=== PATIENT | female | born 1960 | race Caucasian/White ===

== ENCOUNTER 2017-08-20 20:05 | Emergency (ER) | payer MEDICARE ==
[2017-08-20] MEDS ORDERED: Morphine 4 MG/ML VIAL ONE ×2 (20:22→20:53)
[2017-08-20] MEDS ORDERED: Ondansetron ODT 4 MG TAB ONE (20:22)
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
--- NOTE | 2017-08-20 20:51 | RAD ---
RIGHT WRIST THREE VIEWS: HISTORY: Comminuted distal radial fracture with mild foreshortening. Nondisplaced ulnar styloid process fract ure. IMPRESSION: 1. Slightly comminuted distal radial fracture with minimal foreshortening. 2. Nondisplaced ulnar styloid process fracture. POS: RRE
== END 2017-08-20 22:37 | disposition home or self-care (01) ==
LOC: ERS 20:05
DX: S52.614A Nondisplaced fracture of right ulna styloid process, initial encounter for closed fracture (principal); S52.501A Unspecified fracture of the lower end of right radius, initial encounter for closed fracture; F90.9 Attention-deficit hyperactivity disorder, unspecified type; Z79.899 Other long term (current) drug therapy; W01.0XXA Fall on same level from slipping, tripping and stumbling without subsequent striking against object, initial encounter
CPT/HCPCS: 29125; 96374; J2270; Q0162

== ENCOUNTER 2018-03-09 08:12 | Inpatient (IN) | payer MEDICARE, OTHER ==
[2018-03-09 08:33] LABS: #Eosinphils 0.3 thou/uL (0.0-0.7); #Lymphocytes 1.5 thou/uL (1.20-3.40); #Monocytes 0.7 thou/uL (0.11-0.59); #Neutrophils 7.7 thou/uL (1.40-6.50); %Basophils 0.4 % (0.0-1.0); %Eosinophils 3.3 % (0.0-10.0); %Lymphocytes 14.5 % (21.0-51.0); %Monocytes 6.4 % (0.0-10.0); %Neutrophils 75.4 % (42.0-75.0); Hemoglobin 12.3 g/dL (12.0-16.0); Mean Corpuscular HGB CONC 31.4 g/dL (32.0-36.0); Mean Corpuscular Hemoglobin 31.4 pg (27.0-31.0); Mean Corpuscular Volume 99.9 fL (78.0-98.0); Mean Platelet Volume 6.7 fL (7.4-10.4); Platelet Count 496 thou/uL (130-400); RBC Distribution Width 13.4 % (11.5-14.5); Red Blood Cell (RBC) Count 3.93 mill/uL (4.20-5.40); White Blood Cell (WBC) Count 10.2 thou/uL (4.8-10.8)
[2018-03-09] MEDS ORDERED: Lorazepam 2 MG/ML VIAL ONE (08:40)
[2018-03-09 08:41] LABS: PTT 26.6 SEC (22.9-36.1); Prothrombin Time 13.6 SEC (12.0-14.7)
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
[2018-03-09 08:56] LABS: ALT (SGPT) 10 U/L (8-55); AST (SGOT) 14 U/L (5-34); Albumin 4.1 g/dL (3.5-5.0); Alkaline Phosphatase 109 U/L (40-150); Anion Gap 16 mmol/L (10-20); BUN (Urea Nitrogen) 10 mg/dL (9.8-20.1); Bilirubin, Total 0.4 mg/dL (0.2-1.2); Calc. Creatinine Clearance 0 mL/min (70-130); Calcium 9.1 mg/dL (7.8-10.44); Carbon Dioxide 16 mmol/L (22-29); Chloride 108 mmol/L (98-107); Estimated GFR-MDRD 76; Globulin 2.7 g/dL (2.4-3.5); Glucose 107 mg/dL (70-105); Lipase 15 U/L (8-78); Potassium 3.5 mmol/L (3.5-5.1); Protein, Total 6.8 g/dL (6.0-8.3); Sodium 136 mmol/L (136-145)
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
[2018-03-09] MEDS ORDERED: Ondansetron PF 4 MG/2 ML Vial ONE ×2 (09:49→14:22)
[2018-03-09] MEDS ORDERED: Morphine 4 MG/ML VIAL ONE (09:49)
[2018-03-09] MEDS ORDERED: Adacel (T-DAP) 0.5 ML SYRINGE ONE (10:03)
[2018-03-09] MEDS ORDERED: Clindamycin/D5W 900 MG in Premix Bag 1 BAG IVPB SCH (10:15)
[2018-03-09 10:43] LABS: Medtox Reader # READER 4; Phencyclidine (PCP) Not Detected (NotDetected); THC/Cannabinoid Screen Not Detected (NotDetected)
[2018-03-09 10:44] LABS: Amphetamine Not Detected (NotDetected); Barbiturates Screen Not Detected (NotDetected); Benzodiazepine Screen Detected (NotDetected); Cocaine Metabolite Screen Not Detected (NotDetected); Medtox Control Line Valid? VALID (VALID); Methadone Not Detected (NotDetected); Methamphetamine Not Detected (NotDetected); Opiate Screen Detected (NotDetected); Oxycodone Screen Not Detected (NotDetected); Tricyclic Screen Not Detected (NotDetected)
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
[2018-03-09 11:25] LABS: Acetaminophen Less than 6.0 mcg/mL (10.0-30.0); Alcohol Less than 10 mg/dL (Less than 10); Salicylate Less than 8.0 mg/dL (15.0-30.0)
[2018-03-09] MEDS ORDERED: Morphine 10 MG/ML VIAL ONE (11:31)
[2018-03-09] MEDS ORDERED: Midazolam HCl 2 mg/2 ml Vial ONE ×2 (11:32→13:25)
[2018-03-09] MEDS ORDERED: Tranexamic Acid 1,000 MG in Sodium Chloride 0.9% 100 ML IVPB SCH (13:15)
[2018-03-09] MEDS ORDERED: Promethazine HCl 25 MG/ML VIAL SLOW IVP PRN (13:20)
[2018-03-09] MEDS ORDERED: HYDROmorphone 2 MG/ML VIAL SLOW IVP PRN (13:20)
[2018-03-09] MEDS ORDERED: PACU-Morphine 4MG/ML VIAL SLOW IVP PRN (13:20)
[2018-03-09] MEDS ORDERED: Ondansetron HCl/PF 4 MG/2 ML Vial IVP PRN (13:20)
[2018-03-09] MEDS ORDERED: Promethazine HCl 25 MG/ML VIAL IM PRN (13:20)
--- NOTE | 2018-03-09 13:22 | RAD ---
INTRAOPERATIVE FLUOROSCOPY: HISTORY: Left hip fracture. FINDINGS: Five fluoroscopic images demonstrate internal fixation and hardware placement. Alignment is near jose tomic. Fracture lucency is noted. IMPRESSION: Fluoroscopy as above. POS: CET
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
[2018-03-09] MEDS ORDERED: Fentanyl 100 MCG/2 ML VIAL ONE (13:25)
[2018-03-09] MEDS ORDERED: Lidocaine 1% PF 5 ML VIAL ONE (14:22)
[2018-03-09] MEDS ORDERED: PROPOFOL 200 MG/20 ML VIAL ONE (14:22)
[2018-03-09] MEDS ORDERED: Glycopyrrolate 0.2 MG/ML 5 ML SYRINGE ONE (14:22)
[2018-03-09] MEDS ORDERED: Succinylcholine Chloride 20 MG/ML 10 ml SYRINGE FS ONE (14:22)
[2018-03-09] MEDS ORDERED: PHENYLEPHRINE-NS 100 MCG/ML 10 ML SYRINGE ONE (14:22)
[2018-03-09] MEDS ORDERED: Rocuronium Bromide 10 MG/ML (10ML VIAL) ONE (14:22)
[2018-03-09] MEDS ORDERED: ePHEDrine 50 MG/ML VIAL ONE (14:22)
[2018-03-09] MEDS ORDERED: Dextrose 50% Abboject 50 ML SYRINGE SLOW IVP PRN (14:27)
[2018-03-09] MEDS ORDERED: Dextrose 5% in Water 1,000 ML IV PRN (14:27)
[2018-03-09] MEDS ORDERED: Sodium Chloride 0.9% 1,000 ML IV SCH (14:27)
[2018-03-09] MEDS ORDERED: hydrALAZINE 20 MG/ML VIAL SLOW IVP PRN (14:27)
[2018-03-09] MEDS ORDERED: Ondansetron PF 4 MG/2 ML Vial IVP PRN (14:27)
[2018-03-09] MEDS ORDERED: Morphine 4 MG/ML VIAL SLOW IVP PRN ×3 (14:27→15:35)
[2018-03-09] MEDS ORDERED: ISOVUE-370 76%-LOCM 1 ML ONE (14:47)
--- NOTE | 2018-03-09 14:50 | OP ---
DATE OF PROCEDURE: 03/09/2018 PREOPERATIVE DIAGNOSIS: Subtrochanteric femur fracture, left. POSTOPERATIVE DIAGNOSIS: Subtrochanteric femur fracture, left. PROCEDURE PERFORMED: Intramedullary fixation of left femur with a long trochanteric femoral nail. UTILIZATION MANAGEMENT RN: Estrella Hendrix PA-C BLOOD LOSS: About 300. SPECIMEN: None. DRAIN: None. COMPLICATION: None. DESCRIPTION OF PROCEDURE: The patient was taken to the operating room, where general anesthesia was induced. The patient was placed in a supine position on a fracture table. Traction was applied. Hip was prepped and draped in usual sterile fashion from mid calf to the ribcage. Lateral view showed greatly displaced fracture as usual occasional transverse subtroch fracture. I did an open approach, made a subvastus approach to the femur to suppress the dissection, anatomically reduced the femur with clamps. I then made a superior incision over the greater trochanter. Dissection carried down through the gluteal fascia. I palpated the greater trochanter. I made a hole in the greater trochanter and passed a ball-tipped guidewire across the fracture, reamed with a 16 mm proximal reamer and reamed to 12.5 distally. I placed a 380 x 11 trochanteric femoral nail with a 95 lag screw and 1 single distal locking screw 50 mm. Irrigation was performed. Hemostasis was obtained. Fascia was repaired with #2 Vicryl, #2 Quill. Subcu was closed with 0 Quill and skin was closed with luh. A sterile dressing was applied. There were no complications. Job ID: [id number]
[2018-03-09 15:23] VITALS: BMI 21.9
[2018-03-09] MEDS ORDERED: traMADol HCl 50 MG TAB PO PRN (15:36)
[2018-03-09] MEDS: Acetaminophen 1,000 MG in Premix Bag 1 BAG IVPB SCH ×2 (16:01→20:28)
[2018-03-09] MEDS: Famotidine/PF 20 mg/2ml Vial SLOW IVP SCH (20:25)
[2018-03-09] MEDS: ALPRAZolam 0.5 MG TAB PO SCH (20:26)
[2018-03-09] MEDS: Clindamycin/D5W 900 MG in Premix Bag 1 BAG IVPB SCH (21:36)
[2018-03-09] MEDS: Senokot S 8.6-50 MG TAB PO SCH (21:46)
[2018-03-09] MEDS ORDERED: Melatonin 3 MG TAB PO PRN (21:56)
[2018-03-09] MEDS ORDERED: Melatonin 3 MG TAB PO SCH ×2 (22:01→22:30)
[2018-03-09] MEDS: traMADol HCl 50 MG TAB PO PRN (22:03)
[2018-03-09] MEDS: Sodium Chloride 0.9% 1,000 ML IV SCH (22:34)
[2018-03-10] MEDS: Acetaminophen 1,000 MG in Premix Bag 1 BAG IVPB SCH (02:49)
[2018-03-10] MEDS: Cyclobenzaprine 10 MG TAB PO PRN ×2 (02:49→14:11)
[2018-03-10] MEDS: Ibuprofen 600 MG TAB PO PRN ×2 (05:05→14:11)
[2018-03-10] MEDS: Clindamycin/D5W 900 MG in Premix Bag 1 BAG IVPB SCH (05:05)
[2018-03-10 07:51] LABS: #Eosinphils 0.1 thou/uL (0.0-0.7); #Lymphocytes 1.4 thou/uL (1.20-3.40); #Monocytes 0.5 thou/uL (0.11-0.59); #Neutrophils 5.9 thou/uL (1.40-6.50); %Basophils 0.3 % (0.0-1.0); %Eosinophils 0.7 % (0.0-10.0); %Lymphocytes 18.2 % (21.0-51.0); %Monocytes 6.5 % (0.0-10.0); %Neutrophils 74.3 % (42.0-75.0); Hemoglobin 8.3 g/dL (12.0-16.0); Mean Corpuscular HGB CONC 32.5 g/dL (32.0-36.0); Mean Corpuscular Hemoglobin 32.5 pg (27.0-31.0); Mean Corpuscular Volume 99.8 fL (78.0-98.0); Mean Platelet Volume 7.1 fL (7.4-10.4); Platelet Count 353 thou/uL (130-400); RBC Distribution Width 13.3 % (11.5-14.5); Red Blood Cell (RBC) Count 2.55 mill/uL (4.20-5.40); White Blood Cell (WBC) Count 7.9 thou/uL (4.8-10.8)
[2018-03-10] MEDS ORDERED: HYDROcodone/Acetaminophen 7.5/325 mg Tablet PO PRN ×2 (07:59)
[2018-03-10 08:08] LABS: Anion Gap 9 mmol/L (10-20); BUN (Urea Nitrogen) 11 mg/dL (9.8-20.1); Calc. Creatinine Clearance 90 mL/min (70-130); Calcium 8.1 mg/dL (7.8-10.44); Carbon Dioxide 24 mmol/L (22-29); Chloride 107 mmol/L (98-107); Estimated GFR-MDRD Greater than 90; Glucose 88 mg/dL (70-105); Phosphorus 3.1 mg/dL (2.3-4.7); Potassium 3.5 mmol/L (3.5-5.1); Sodium 136 mmol/L (136-145)
[2018-03-10] MEDS: Sodium Chloride 0.9% 1,000 ML IV SCH ×2 (08:22→18:41)
[2018-03-10] MEDS: Polyethylene Glycol 3350 17 GM Packet PO SCH (08:24)
[2018-03-10] MEDS: Estradiol 1 MG TAB PO SCH (08:24)
[2018-03-10] MEDS: Senokot S 8.6-50 MG TAB PO SCH ×2 (08:24→20:01)
[2018-03-10] MEDS: Famotidine/PF 20 mg/2ml Vial SLOW IVP SCH ×2 (08:25→20:02)
[2018-03-10] MEDS: medroxyPROGESTERone Acetate 2.5 MG TAB PO SCH (08:25)
[2018-03-10] MEDS: ALPRAZolam 0.5 MG TAB PO SCH ×2 (08:25→20:02)
[2018-03-10] MEDS ORDERED: Potassium Phosphate 30 MMOL in Sodium Chloride 0.9% 500 ML IVPB SCH (08:45)
[2018-03-10] MEDS: Acetaminophen 325 MG TAB PO SCH ×3 (10:22→21:17)
[2018-03-10] MEDS: traMADol HCl 50 MG TAB PO PRN ×2 (10:23→16:11)
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
[2018-03-10] MEDS: Gabapentin 100 MG CAP PO SCH ×2 (14:11→20:02)
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
[2018-03-10] MEDS: HYDROcodone/Acetaminophen 5/325 mg Tablet PO PRN (17:18)
[2018-03-10] MEDS: Enoxaparin Sodium 40 MG/0.4 ML SYRINGE SC SCH (20:00)
[2018-03-10] MEDS: Melatonin 3 MG TAB PO SCH (20:03)
[2018-03-10] MEDS ORDERED: Melatonin 3 MG TAB PO SCH (21:00)
[2018-03-11] MEDS: Sodium Chloride 0.9% 1,000 ML IV SCH (02:34)
[2018-03-11] MEDS: Acetaminophen 325 MG TAB PO SCH ×4 (03:35→21:32)
[2018-03-11] MEDS: traMADol HCl 50 MG TAB PO PRN ×2 (04:40→14:09)
[2018-03-11 06:46] LABS: #Eosinphils 0.3 thou/uL (0.0-0.7); #Monocytes 0.5 thou/uL (0.11-0.59); #Neutrophils 5.4 thou/uL (1.40-6.50); %Basophils 0.4 % (0.0-1.0); %Eosinophils 4.7 % (0.0-10.0); %Lymphocytes 13.6 % (21.0-51.0); %Monocytes 6.3 % (0.0-10.0); %Neutrophils 75.1 % (42.0-75.0); Hemoglobin 7.7 g/dL (12.0-16.0); Mean Corpuscular HGB CONC 32.4 g/dL (32.0-36.0); Mean Corpuscular Hemoglobin 32.6 pg (27.0-31.0); Mean Platelet Volume 6.7 fL (7.4-10.4); Platelet Count 319 thou/uL (130-400); RBC Distribution Width 13.6 % (11.5-14.5); Red Blood Cell (RBC) Count 2.35 mill/uL (4.20-5.40); White Blood Cell (WBC) Count 7.2 thou/uL (4.8-10.8)
[2018-03-11] MEDS: Ibuprofen 600 MG TAB PO PRN (07:05)
[2018-03-11] MEDS: Cyclobenzaprine 10 MG TAB PO PRN (07:05)
[2018-03-11 07:25] LABS: Anion Gap 8 mmol/L (10-20); BUN (Urea Nitrogen) 7 mg/dL (9.8-20.1); Calc. Creatinine Clearance 99 mL/min (70-130); Calcium 8.2 mg/dL (7.8-10.44); Carbon Dioxide 22 mmol/L (22-29); Chloride 112 mmol/L (98-107); Estimated GFR-MDRD Greater than 90; Glucose 81 mg/dL (70-105); Phosphorus 2.1 mg/dL (2.3-4.7); Potassium 3.4 mmol/L (3.5-5.1); Sodium 139 mmol/L (136-145)
[2018-03-11] MEDS: Famotidine/PF 20 mg/2ml Vial SLOW IVP SCH (08:16)
[2018-03-11] MEDS: ALPRAZolam 0.5 MG TAB PO SCH ×2 (08:16→21:31)
[2018-03-11] MEDS: Senokot S 8.6-50 MG TAB PO SCH ×2 (08:17→21:32)
[2018-03-11] MEDS: Estradiol 1 MG TAB PO SCH (08:17)
[2018-03-11] MEDS: medroxyPROGESTERone Acetate 2.5 MG TAB PO SCH (08:18)
[2018-03-11] MEDS: Gabapentin 100 MG CAP PO SCH ×3 (08:18→21:31)
[2018-03-11] MEDS: Polyethylene Glycol 3350 17 GM Packet PO SCH (08:18)
[2018-03-11] MEDS ORDERED: Potassium Phosphate 30 MMOL in Sodium Chloride 0.9% 500 ML IVPB SCH (08:45)
[2018-03-11] MEDS: HYDROcodone/Acetaminophen 5/325 mg Tablet PO PRN ×3 (08:47→21:33)
--- NOTE | 2018-03-11 12:59 | PRG ---
DATE OF SERVICE: 03/11/2018 SUBJECTIVE: The patient was seen this morning sitting up in bed. Reported sleeping well overnight and pain was well controlled. Tolerating a regular diet. Kiser was removed yesterday. Denies nausea, vomiting, or diarrhea at this time. PHYSICAL EXAMINATION: VITAL SIGNS: Temperature 98.1, pulse 85, respirations 16, oxygen saturation 93% on room air, blood pressure 101/69. GENERAL: Alert and well-appearing middle-aged female, sitting up in bed with no signs of acute distress. NEURO: GCS is 15. Alert and oriented x3. Gross motor and sensation intact. Pupils equal, round, reactive to light. PULMONARY: No signs of acute distress. Equal chest rise and fall. Lung rodriguez clear bilaterally. HEART: Regular rate and rhythm. No murmurs, gallops, or rubs. GI: Abdomen is soft, nontender, nondistended. EXTREMITIES: Gross motor and sensation intact in all 4 extremities. 2+ pulses in all extremities. No swelling noted. Wound dressing to left thigh is clean, dry, and intact with no signs of infection. LABORATORY FINDINGS: White blood cell count 7.2, hemoglobin 7.7, hematocrit 23.7, platelets 319. Sodium 139, potassium 3.4, chloride 112, BUN 7, creatinine 0.61, glucose 81, phos 2.1, magnesium 2.0. DIAGNOSTIC FINDINGS: There are no diagnostic findings to discuss. ASSESSMENT: 1. Left subtrochanteric femur fracture, status post repair. 2. Acute versus chronic T7 through L1 vertebral body fractures with no height loss. T12 and L1 with retropulsion. Questionable C2 endplate fracture. 3. Hypokalemia and hypophosphatemia. 4. History of hypomania and attention deficit hyperactivity disorder. PLAN: The patient will continue to work with Physical Therapy today. Potassium and phosphorus will be replaced. Pain is well controlled on current regimen, which will be continued. No other intervention by Orthopedic Surgery. Neurosurgery recommended TLSO brace. The patient was having back pain, which she currently denies. We will continue regular diet and Lovenox. The patient will likely be placed into rehab and she is ready for discharge at this time. The patient was discussed with Dr. Peralta this morning after rounds. Job ID: [id number]
[2018-03-11] MEDS: Enoxaparin Sodium 40 MG/0.4 ML SYRINGE SC SCH (21:30)
[2018-03-11] MEDS: Famotidine 20 MG TAB PO SCH (21:31)
[2018-03-11] MEDS: Melatonin 3 MG TAB PO SCH (21:37)
[2018-03-12] MEDS: Ibuprofen 600 MG TAB PO PRN ×2 (02:00→18:09)
[2018-03-12] MEDS: traMADol HCl 50 MG TAB PO PRN ×3 (02:00→18:09)
[2018-03-12] MEDS: HYDROcodone/Acetaminophen 5/325 mg Tablet PO PRN ×4 (03:43→21:26)
[2018-03-12] MEDS: Cyclobenzaprine 10 MG TAB PO PRN ×2 (03:45→18:10)
[2018-03-12] MEDS: Acetaminophen 325 MG TAB PO SCH ×4 (04:17→21:28)
[2018-03-12 07:16] LABS: Anion Gap 11 mmol/L (10-20); BUN (Urea Nitrogen) 6 mg/dL (9.8-20.1); Calc. Creatinine Clearance 101 mL/min (70-130); Calcium 8.3 mg/dL (7.8-10.44); Carbon Dioxide 22 mmol/L (22-29); Chloride 110 mmol/L (98-107); Estimated GFR-MDRD Greater than 90; Glucose 86 mg/dL (70-105); Phosphorus 2.8 mg/dL (2.3-4.7); Potassium 3.8 mmol/L (3.5-5.1); Sodium 139 mmol/L (136-145)
[2018-03-12 07:34] LABS: #Eosinphils 0.3 thou/uL (0.0-0.7); #Lymphocytes 1.1 thou/uL (1.20-3.40); #Monocytes 0.4 thou/uL (0.11-0.59); #Neutrophils 5.2 thou/uL (1.40-6.50); %Basophils 0.6 % (0.0-1.0); %Eosinophils 3.8 % (0.0-10.0); %Lymphocytes 15.6 % (21.0-51.0); %Monocytes 5.6 % (0.0-10.0); %Neutrophils 74.4 % (42.0-75.0); Hemoglobin 7.8 g/dL (12.0-16.0); Mean Corpuscular HGB CONC 32.1 g/dL (32.0-36.0); Mean Platelet Volume 8.3 fL (7.4-10.4); Platelet Count 294 thou/uL (130-400); RBC Distribution Width 13.6 % (11.5-14.5); Red Blood Cell (RBC) Count 2.36 mill/uL (4.20-5.40)
[2018-03-12] MEDS: Polyethylene Glycol 3350 17 GM Packet PO SCH (08:58)
[2018-03-12] MEDS: Estradiol 1 MG TAB PO SCH (09:01)
[2018-03-12] MEDS: Gabapentin 100 MG CAP PO SCH ×3 (09:01→21:27)
[2018-03-12] MEDS: ALPRAZolam 0.5 MG TAB PO SCH ×2 (09:02→21:27)
[2018-03-12] MEDS: Famotidine 20 MG TAB PO SCH ×2 (09:02→21:27)
[2018-03-12] MEDS: Senokot S 8.6-50 MG TAB PO SCH ×2 (09:03→21:28)
[2018-03-12] MEDS: medroxyPROGESTERone Acetate 2.5 MG TAB PO SCH (11:36)
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
[2018-03-12] MEDS: Enoxaparin Sodium 40 MG/0.4 ML SYRINGE SC SCH (21:27)
[2018-03-12] MEDS: Melatonin 3 MG TAB PO SCH (21:28)
[2018-03-13] MEDS: Acetaminophen 325 MG TAB PO SCH ×6 (01:04→23:58)
[2018-03-13 07:37] LABS: #Eosinphils 0.4 thou/uL (0.0-0.7); #Lymphocytes 1.4 thou/uL (1.20-3.40); #Monocytes 0.4 thou/uL (0.11-0.59); #Neutrophils 3.9 thou/uL (1.40-6.50); %Basophils 0.7 % (0.0-1.0); %Eosinophils 6.5 % (0.0-10.0); %Lymphocytes 23.4 % (21.0-51.0); %Monocytes 5.6 % (0.0-10.0); %Neutrophils 63.8 % (42.0-75.0); Hemoglobin 8.4 g/dL (12.0-16.0); Mean Corpuscular HGB CONC 32.2 g/dL (32.0-36.0); Mean Corpuscular Hemoglobin 32.8 pg (27.0-31.0); Mean Platelet Volume 6.7 fL (7.4-10.4); Platelet Count 450 thou/uL (130-400); RBC Distribution Width 13.3 % (11.5-14.5); Red Blood Cell (RBC) Count 2.56 mill/uL (4.20-5.40); White Blood Cell (WBC) Count 6.2 thou/uL (4.8-10.8)
[2018-03-13 07:57] LABS: Anion Gap 13 mmol/L (10-20); BUN (Urea Nitrogen) 5 mg/dL (9.8-20.1); Calc. Creatinine Clearance 101 mL/min (70-130); Calcium 8.7 mg/dL (7.8-10.44); Carbon Dioxide 23 mmol/L (22-29); Chloride 107 mmol/L (98-107); Estimated GFR-MDRD Greater than 90; Glucose 107 mg/dL (70-105); Magnesium 1.8 mg/dL (1.6-2.6); Phosphorus 2.6 mg/dL (2.3-4.7); Potassium 3.1 mmol/L (3.5-5.1); Sodium 140 mmol/L (136-145)
[2018-03-13] MEDS ORDERED: Magnesium 2 GM/50 ML 2 GM in Premix Bag 1 BAG IVPB SCH ×2 (08:15→09:08)
[2018-03-13] MEDS: Gabapentin 100 MG CAP PO SCH ×3 (08:25→21:17)
[2018-03-13] MEDS: HYDROcodone/Acetaminophen 5/325 mg Tablet PO PRN ×2 (08:25→15:31)
[2018-03-13] MEDS: ALPRAZolam 0.5 MG TAB PO SCH ×2 (08:25→21:18)
[2018-03-13] MEDS: Estradiol 1 MG TAB PO SCH ×2 (08:25→09:49)
[2018-03-13] MEDS: Cyclobenzaprine 10 MG TAB PO PRN ×2 (08:25→21:17)
[2018-03-13] MEDS: Senokot S 8.6-50 MG TAB PO SCH ×2 (08:26→21:21)
[2018-03-13] MEDS: Famotidine 20 MG TAB PO SCH ×2 (08:26→21:21)
[2018-03-13] MEDS: Polyethylene Glycol 3350 17 GM Packet PO SCH (08:26)
[2018-03-13] MEDS ORDERED: Polyethylene Glycol 3350 17 GM Packet PO SCH (09:00)
[2018-03-13] MEDS ORDERED: Potassium Phosphate 30 MMOL in Sodium Chloride 0.9% 500 ML IVPB SCH (09:15)
[2018-03-13] MEDS: medroxyPROGESTERone Acetate 2.5 MG TAB PO SCH (09:49)
[2018-03-13] MEDS: traMADol HCl 50 MG TAB PO PRN (09:52)
[2018-03-13] MEDS ORDERED: Potassium Chloride 20 MEQ TAB PO SCH (12:00)
[2018-03-13] MEDS ORDERED: K-Phos Neutral 250 MG TAB PO SCH (17:00)
[2018-03-13] MEDS ORDERED: ALPRAZolam 0.5 MG TAB PO SCH (17:30)
[2018-03-13] MEDS: Magnesium Oxide 400 MG TAB PO SCH (21:17)
[2018-03-13] MEDS: Enoxaparin Sodium 40 MG/0.4 ML SYRINGE SC SCH (21:18)
[2018-03-13] MEDS: Melatonin 3 MG TAB PO SCH (21:21)
[2018-03-14] MEDS: HYDROcodone/Acetaminophen 5/325 mg Tablet PO PRN ×3 (03:28→19:14)
[2018-03-14] MEDS: Acetaminophen 325 MG TAB PO SCH ×4 (04:15→20:26)
[2018-03-14 06:26] LABS: Anion Gap 11 mmol/L (10-20); BUN (Urea Nitrogen) 4 mg/dL (9.8-20.1); Calc. Creatinine Clearance 97 mL/min (70-130); Calcium 8.8 mg/dL (7.8-10.44); Carbon Dioxide 24 mmol/L (22-29); Chloride 107 mmol/L (98-107); Estimated GFR-MDRD Greater than 90; Glucose 93 mg/dL (70-105); Magnesium 1.8 mg/dL (1.6-2.6); Phosphorus 3.4 mg/dL (2.3-4.7); Potassium 4.1 mmol/L (3.5-5.1); Sodium 138 mmol/L (136-145)
[2018-03-14 06:29] LABS: Band 8 % (5-11); Eosinophils 2 % (0-10); Hemoglobin 8.2 g/dL (12.0-16.0); Lymphocytes 21 % (21-51); MDiff Complete? YES; Mean Corpuscular HGB CONC 32.1 g/dL (32.0-36.0); Mean Corpuscular Hemoglobin 32.4 pg (27.0-31.0); Mean Platelet Volume 6.6 fL (7.4-10.4); Monocytes 4 % (0-10); Neutrophil 65 % (42-75); Platelet Count 449 thou/uL (130-400); RBC Distribution Width 13.5 % (11.5-14.5); Red Blood Cell (RBC) Count 2.52 mill/uL (4.20-5.40); White Blood Cell (WBC) Count 7.4 thou/uL (4.8-10.8)
[2018-03-14] MEDS ORDERED: Magnesium 2 GM/50 ML 2 GM in Premix Bag 1 BAG IVPB SCH (07:15)
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
[2018-03-14] MEDS: Magnesium Oxide 400 MG TAB PO SCH ×2 (08:24→20:26)
[2018-03-14] MEDS: Estradiol 1 MG TAB PO SCH (08:24)
[2018-03-14] MEDS: medroxyPROGESTERone Acetate 2.5 MG TAB PO SCH (08:24)
[2018-03-14] MEDS: ALPRAZolam 0.5 MG TAB PO SCH ×3 (08:24→20:25)
[2018-03-14] MEDS: Gabapentin 100 MG CAP PO SCH ×3 (08:24→20:25)
[2018-03-14] MEDS: Famotidine 20 MG TAB PO SCH ×2 (08:27→20:26)
[2018-03-14] MEDS: Polyethylene Glycol 3350 17 GM Packet PO SCH ×2 (08:31→11:49)
[2018-03-14] MEDS: Senokot S 8.6-50 MG TAB PO SCH ×3 (08:31→20:26)
[2018-03-14 09:34] LABS: Vitamin B12 Less than 109 pg/mL (211-911)
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
[2018-03-14] MEDS ORDERED: Cyanocobalamin 1000 MCG/ML VIAL IM SCH (11:00)
[2018-03-14] MEDS: Ascorbic Acid 500 mg Chewable Tablet PO SCH (11:50)
[2018-03-14] MEDS: traMADol HCl 50 MG TAB PO PRN (11:50)
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
[2018-03-14 15:30] LABS: Bilirubin Negative (Negative); Blood, Urine Negative (Negative); Clarity CLEAR (Clear); Glucose, Urine (Dipstick) Negative (Negative); Leukocyte Negative (Negative); Nitrite Negative (Negative); Protein, Urine (Dipstick) Negative (Neg-Trace); Specific Gravity, Urine 1.006 (1.002-1.036)
[2018-03-14] MEDS: Melatonin 3 MG TAB PO SCH (20:26)
[2018-03-14] MEDS: Enoxaparin Sodium 40 MG/0.4 ML SYRINGE SC SCH (20:26)
[2018-03-15] MEDS: Cyclobenzaprine 10 MG TAB PO PRN (01:39)
[2018-03-15] MEDS: HYDROcodone/Acetaminophen 5/325 mg Tablet PO PRN ×2 (01:40→08:42)
[2018-03-15] MEDS: Acetaminophen 325 MG TAB PO SCH ×2 (02:49→08:43)
[2018-03-15 07:11] LABS: #Eosinphils 0.3 thou/uL (0.0-0.7); #Lymphocytes 1.2 thou/uL (1.20-3.40); #Monocytes 0.4 thou/uL (0.11-0.59); #Neutrophils 4.3 thou/uL (1.40-6.50); %Basophils 0.4 % (0.0-1.0); %Eosinophils 4.1 % (0.0-10.0); %Lymphocytes 19.2 % (21.0-51.0); %Monocytes 6.9 % (0.0-10.0); %Neutrophils 69.4 % (42.0-75.0); Hemoglobin 8.4 g/dL (12.0-16.0); Mean Corpuscular HGB CONC 31.7 g/dL (32.0-36.0); Mean Corpuscular Hemoglobin 32.3 pg (27.0-31.0); Mean Platelet Volume 6.8 fL (7.4-10.4); Platelet Count 497 thou/uL (130-400); RBC Distribution Width 13.7 % (11.5-14.5); Red Blood Cell (RBC) Count 2.61 mill/uL (4.20-5.40); White Blood Cell (WBC) Count 6.2 thou/uL (4.8-10.8)
[2018-03-15 07:22] LABS: Anion Gap 11 mmol/L (10-20); BUN (Urea Nitrogen) 7 mg/dL (9.8-20.1); Calc. Creatinine Clearance 97 mL/min (70-130); Carbon Dioxide 27 mmol/L (22-29); Chloride 105 mmol/L (98-107); Estimated GFR-MDRD Greater than 90; Glucose 101 mg/dL (70-105); Phosphorus 3.8 mg/dL (2.3-4.7); Potassium 3.9 mmol/L (3.5-5.1); Sodium 139 mmol/L (136-145)
[2018-03-15] MEDS: Gabapentin 100 MG CAP PO SCH (08:37)
[2018-03-15] MEDS: Ascorbic Acid 500 mg Chewable Tablet PO SCH ×2 (08:38→08:46)
[2018-03-15] MEDS: Cholecalciferol (Vitamin D3) 400 UNITS TAB PO SCH ×2 (08:38→08:45)
[2018-03-15] MEDS: Estradiol 1 MG TAB PO SCH ×2 (08:38→08:43)
[2018-03-15] MEDS: ALPRAZolam 0.5 MG TAB PO SCH (08:38)
[2018-03-15] MEDS: Polyethylene Glycol 3350 17 GM Packet PO SCH (08:39)
[2018-03-15] MEDS: Magnesium Oxide 400 MG TAB PO SCH (08:39)
[2018-03-15] MEDS: Senokot S 8.6-50 MG TAB PO SCH (08:39)
[2018-03-15] MEDS: Famotidine 20 MG TAB PO SCH (08:40)
[2018-03-15] MEDS: medroxyPROGESTERone Acetate 2.5 MG TAB PO SCH (08:43)
[2018-03-15] MEDS ORDERED: Magnesium Citrate 300 ML BOT PO SCH (08:45)
[2018-03-15] MEDS ORDERED: Folic Acid 1 MG TAB PO SCH (09:00)
[2018-03-15 12:05] VITALS: BP 99/56; TEMP 100
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
== END 2018-03-15 14:16 | DRG 956 ==
LOC: ERS 08:12 → SURG A 10:08
PROVIDERS: ADMIT Orthopaedic Surgery; ATTEND Orthopaedic Surgery
PROC: 0QS706Z Reposition Left Upper Femur with Intramedullary Internal Fixation Device, Open Approach (ICD-10-PCS; principal; 2018-03-09)
DX: S72.142A Displaced intertrochanteric fracture of left femur, initial encounter for closed fracture (principal); S32.592A Other specified fracture of left pubis, initial encounter for closed fracture; S22.069A Unspecified fracture of T7-T8 vertebra, initial encounter for closed fracture; S32.019A Unspecified fracture of first lumbar vertebra, initial encounter for closed fracture; S32.029A Unspecified fracture of second lumbar vertebra, initial encounter for closed fracture; S32.039A Unspecified fracture of third lumbar vertebra, initial encounter for closed fracture; S32.049A Unspecified fracture of fourth lumbar vertebra, initial encounter for closed fracture; S32.059A Unspecified fracture of fifth lumbar vertebra, initial encounter for closed fracture; S22.079A Unspecified fracture of T9-T10 vertebra, initial encounter for closed fracture; S22.089A Unspecified fracture of T11-T12 vertebra, initial encounter for closed fracture; F30.9 Manic episode, unspecified; V49.40XA Driver injured in collision with unspecified motor vehicles in traffic accident, initial encounter; Y92.410 Unspecified street and highway as the place of occurrence of the external cause; F90.9 Attention-deficit hyperactivity disorder, unspecified type; M81.0 Age-related osteoporosis without current pathological fracture; S01.01XA Laceration without foreign body of scalp, initial encounter; E87.6 Hypokalemia; E83.39 Other disorders of phosphorus metabolism; Z88.0 Allergy status to penicillin
CPT/HCPCS: 36415; 36416; 70450; 71045; 71046; 71260; 72125; 74177; 76000; 80048; 80053; 80306; 80307; 81003; 82306; 82607; 82746; 83690; 83735; 84100; 84484; 85007; 85025; 85027; 85379; 85610; 85730; 90471; 90715; 93005; 96374; 96375; C1713; C1769; G0390; J0131; J1650; J1956; J2001; J2060; J2250; J2270; J2405; J2704; J3010; J3475; J3490; J7050; Q9966; S0028

== ENCOUNTER 2020-10-23 10:27 | Outpatient (CLI) | payer MEDICARE | END 2020-10-23 10:28 | disposition home or self-care (01) | LOC: BICMAMMO 10:27 | PROVIDERS: ATTEND Internal Medicine Endocrinology, Diabetes & Metabolism | DX: M81.0 Age-related osteoporosis without current pathological fracture (principal) | CPT/HCPCS: 77080 ==